=== PATIENT | male | born 1965 | race Caucasian/White ===

== ENCOUNTER 2021-03-01 13:57 | Outpatient (CLI) | payer OTHER, SELFPAY ==
[2021-03-01 15:06] LABS: Basophils Percent Auto 0.8 % (0.2-1.2); Eosinophils Percent Auto 0.8 % (0-4.4); Hematocrit 41.4 % (42.0-52.0); Hemoglobin 14.5 g/dL (14.0-18.0); Immature Granulocyte Absolute 0.01 K/mm3 (0.00-0.031); Immature Granulocyte Percent A 0.2 % (0-0.5); Lymphocytes Absolute Auto 1.76 K/mm3 (0.9-3.2); Lymphocytes Percent Auto 36.7 % (18.3-44.2); Mean Corpuscular Hemoglobin 32.8 pg (26-34); Mean Corpuscular Volume 93.7 fl (80-100); Mean Platelet Volume 9.6 fl (7.4-10.4); Monocytes Absolute Auto 0.3 K/mm3 (0.1-0.6); Monocytes Percent Auto 7.1 % (2.6-8.5); Neutrophils Absolute Auto 2.6 K/mm3 (1.3-6.7); Neutrophils Percent Auto 54.4 % (45.5-73.1); Platelet Count Result 212 k/mm3 (150-375); Red Blood Count 4.42 M/mm3 (4.6-6.20); Red Cell Distribution Width 11.4 % (11.5-14.5); White Blood Count 4.8 K/mm3 (4.5-10.0)
[2021-03-01 15:21] LABS: Hemoglobin A1C 5.2 % (<5.7)
[2021-03-01 15:28] LABS: Albumin Level 4.7 g/dL (3.5-5.1); Anion Gap 9 mmol/L (8-16); Blood Urea Nitrogen 18 mg/dL (9-20); Calcium 9.4 mg/dL (8.4-10.2); Carbon Dioxide 29 mmol/L (22-30); Chloride 103 mmol/L (98-107); Estimated Glomerular Filt Rate > 60; Glucose 128 mg/dL (65-110); Potassium 4.2 mmol/L (3.4-5.0); Sodium 141 mmol/L (137-145)
[2021-03-01 15:54] LABS: Urine Cotinine NEGATIVE
== END 2021-03-01 13:58 | disposition home or self-care (01) ==
LOC: ANHSURGERY 14:03
PROVIDERS: PCP Orthopaedic Surgery; Visit Provider Orthopaedic Surgery
DX: Z01.812 Encounter for preprocedural laboratory examination (principal); M16.11 Unilateral primary osteoarthritis, right hip
CPT/HCPCS: 80048; 80307; 82040; 83036; 85025; 86850; 86900; 86901; 87070

== ENCOUNTER → 2021-03-08 14:06 | Outpatient (REF) | payer OTHER, SELFPAY | LOC: ANHLAB 14:06 | PROVIDERS: PCP Internal Medicine Gastroenterology; Visit Provider Nurse Practitioner | DX: D49.2 Neoplasm of unspecified behavior of bone, soft tissue, and skin (principal) | CPT/HCPCS: 88305 ==

== ENCOUNTER 2021-03-14 00:43 | Day surgery (SDC) | payer OTHER, SELFPAY ==
[2021-03-01 14:09] VITALS: BMI 25.0
[2021-03-01 14:44] VITALS: BP 141/81; PULSE 78; RESP 16; TEMP 37.2; O2SAT 99
--- NOTE | 2021-03-11 12:16 | PM.IMHP ---
H&P: HPI History of Present Illness Date/Time: 03/11/21 12:16 55-year-old male patient of Dr Rosario who presents today for a right total hip arthroplasty anterior approach. He underwent left total arthroplasty in August this year. He has recovered well. He is very comfortable and happy with his results. His right hip continues to be very painful for him. He has severe arthritis in the hip. At this point is ready to proceed with total arthroplasty. Chief Complaint: right hip DJD Review of Systems Review of Systems: All systems reviewed & are unremarkable except as noted in HPI and below PMFSH Surgical History Surgical History History of left hip replacement Hx of carpal tunnel repair Hx of cataract surgery Social History Social History Smoking status: Never smoker Additional smoking assessment comments: DENIES ANY FORM OF TOBACCO USE Alcohol intake: current Drinks per week: 10 Spiritual care concerns: No Meds Home Medications and Allergies Home Medications Medication Instructions Recorded Confirmed Type diclofenac sodium 75 mg PO DAILY 03/01/21 03/01/21 History multivitamin [Men's Multi-Vitamin] 1 tablet PO DAILY 03/01/21 03/01/21 History omega-3 fatty acids [Fish Oil] 1,000 mg PO DAILY 03/01/21 03/01/21 History Allergies Allergy/AdvReac Type Severity Reaction Status Date / Time No Known Allergies Allergy Unverified 03/08/21 13:46 Exam Narrative: 55-year-old male alert pleasant. Walks with mild limp. He is 5 ft 10 170 lb. His right hip flexes to 95 externally rotates to 20 and internally rotates to 5. does have some mild atrophy of the right calf. 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 He has pain with Stinchfield maneuver an anterior lateral hip. He has normal abduction strength lateral position. No tenderness over the greater trochanter. Normal sensation right lower extremity. Skin around the groin and anterior lateral hip were all normal. 2+ posterior artery pulse. No edema in lower extremity. Resp: Auscultation: clear to auscultation bilaterally Cardio: Rate: regular rate Rhythm: regular rhythm Assessment and Plan Additional Plan 55-year-old male with severe arthritis of the right hip with rather severe symptoms. He has been on diclofenac without improvement of his symptoms. He did very well recovering from his left total hip arthroplasty earlier this year. He feels he is ready proceed with the right. Surgical procedure as well as risks complications were reviewed all questions were answered and will proceed. He will stop his diclofenac and any other aspirin ibuprofen products 1 week prior surgery. A plane use Eliquis for DVT prophylaxis as we did this 1st hip. His nasal swab was negative. Chem panel is all within normal limits creatinine is 0.90. Hemoglobin 14.5 and platelets were 212.
--- NOTE | 2021-03-11 15:32 | WPDANESEPPF ---
Anes - Initial Pre Proc Eval Procedure: Operation Date: 03/14/21 07:30 Proposed Procedures p Right Total Hip Arthroplasty Direct Anterior Approach - Heladio Beltre MD Date/Time: 03/11/21 15:32 Surgeon: Heladio Beltre MD Pre Op Diagnosis: OA right hip Patient Data Age: 55 Gender: M Height: 1.78 m Weight: 79.2 kg Last Vital Signs Temp 99.0 F 03/01/21 14:44 Pulse 78 03/01/21 14:44 Resp 16 03/01/21 14:44 BP 141/81 H 03/01/21 14:44 Pulse Ox 99 03/01/21 14:44 Allergies Allergy/AdvReac Type Severity Reaction Status Date / Time No Known Allergies Allergy Verified 03/14/21 06:18 Home Medications Medication Instructions Recorded Confirmed Type diclofenac sodium 75 mg PO DAILY 03/01/21 03/14/21 History multivitamin [Men's Multi-Vitamin] 1 tablet PO DAILY 03/01/21 03/14/21 History omega-3 fatty acids [Fish Oil] 1,000 mg PO DAILY 03/01/21 03/14/21 History Patient hx anesthesia problems: none Family hx anesthesia problems: none Results Review: All pre-operative results and documents have been reviewed as part of the pre-operative evaluation. [facility] Past Medical History Medical History (Updated 03/11/21 @ 15:32 by Serge Cortes MD) Arthritis Surgical History Surgical History History of left hip replacement Hx of carpal tunnel repair Hx of cataract surgery Social History Social History Smoking status: Never smoker Additional smoking assessment comments: DENIES ANY FORM OF TOBACCO USE Alcohol intake: current Drinks per week: 10 Living arrangements: with family Spiritual care concerns: No Anes - Eval Final PreProcedure Day of Procedure 03/11/21 15:32 Patient weight: normal Heart: regular rate and rhythm Lungs: clear to auscultation Airway: Mallampati scale class III Neurological: alert and oriented Last oral intake: >/= 8 hours ASA classification: II Emergent: no Anesthetic plan: proceed Anesthesia type and monitoring: general ETT and standard monitoring Results Review: All pre-operative results and documents have been reviewed as part of the pre-operative evaluation. Informed Consent: The patient's anesthetic plan and its attendant risks and benefits were discussed with the patient/family/POA. Questions were solicited and answers provided to the satisfaction of the patient/family/POA.
[2021-03-14] VITALS (13 sets, daily range): BP systolic 114–155; BP diastolic 57–88; PULSE 76–105; RESP 12–20; TEMP 36.7–37.4; O2SAT 95–100; BMI 24.6
--- NOTE | ~2021-03-14 | XR_ITS ---
EXAMINATION: XR hip RT min 2V EXAM DATE: 03/14/2021 13:16 INDICATION: Postoperative right hip replacement. Product. TECHNIQUE: Frontal projection of the hips, crosstable lateral projection right hip. Images obtained postoperatively. There is no prior study for comparison. FINDINGS: Status post right hip arthroplasty with hardware in expected position. The left hip arthrop lasty hardware is in position on the frontal image. There is some subcutaneous gas. IMPRESSION: Hip replacements in expected position. Reviewed, dictated and finalized at location A.
--- NOTE | ~2021-03-14 | XR_ITS ---
EXAMINATION: XR surgery orthopedic EXAM DATE: 03/14/2021 12:02 INDICATION: Anterior approach right hip replacement. TECHNIQUE: Portable frontal projections right hip obtained immediately following arthroplasty perfor med by orthopedic surgeon Heladio Beltre MD. FINDINGS: Patient is status post right hip arthroplasty. The orthopedic hardware is in expected pos ition on frontal projections. There is small amount of subcutaneous gas, some soft tissue swelling. Correlate with procedure note. IMPRESSION: Status post right hip arthroplasty. Reviewed, dictated and finalized at location A.
[2021-03-14] MEDS: ACETAMINOPHEN 500 MG TABLET 1000 MG PO ×3 (06:33→19:51)
[2021-03-14] MEDS: LACTATED RINGERS 1,000 ML 30 ML IV CONT ×2 (06:44→13:07)
[2021-03-14] MEDS: TRANEXAMIC ACID 1,000MG/ISO100 1,000 MG/100 ML BAG 200 MG IVPB (06:52)
--- NOTE | 2021-03-14 07:04 | WPDHPUPDATE1 ---
History and Physical Update Update Date/Time: 03/14/21 07:04 History and Physical has been reviewed, including an updated exam of the patient. There are NO changes in the patient's condition. Risks, benefits, and alternatives have been discussed and questions answered. Patient agrees to proceed with procedure.
[2021-03-14] MEDS: ceFAZolin 2 GM/D5W 50 ML 2 GM/50 ML BAG IVPB (07:33)
[2021-03-14] MEDS: ceFAZolin SODIUM 1 GM VIAL 3 GM IRRIGATION (08:39)
[2021-03-14] MEDS: ceFAZolin SODIUM 1 GM VIAL IV PUSH (11:54)
[2021-03-14] MEDS: TRANEXAMIC ACID 1,000 MG/10 ML AMPUL 1000 MG IV PUSH (12:00)
[2021-03-14] MEDS: ceFAZolin SODIUM 1 GM VIAL IRRIGATION (12:06)
--- NOTE | 2021-03-14 12:31 | W.PM.PROC2 ---
Procedure Note - Detailed Date of Procedure 03/14/21 Pre-op Diagnosis OA right hip Post-op Diagnosis same Procedure Performed Direct anterior approach right total hip arthroplasty Surgeon Heladio Beltre MD Shirrer Elie Anesthesia general Description of Procedure Patient was brought to the operating room and general anesthesia was administered. The right foot was covered with soft roll and Coban placed in the special boot left foot placed in a boot also. Lainez catheter was placed. He was transferred to the OSI Luke table and the right hip prepped draped usual fashion. He received 2 g Ancef weight based vancomycin and 1 g tranexamic acid preoperatively. A 10 cm longitudinal incision was made starting 3 cm lateral to the ASIS. Dissection was carried down to the fascia over the tensor fascia brandy muscle which was incised longitudinally and elevated off the anterior 50% of the TFL muscle. Interval between TFL and rectus femoris was developed and the crossing branches of ascending lateral femoral circumflex vessels were ligated with suture divided. Retractor placed over the anterior capsule of the femoral neck the hip abducted internally rotated and the gluteus minimus carefully dissected off the lateral capsule. Standard capsulotomy was performed and femoral neck osteotomy made according to preoperative templating. The femoral head was harder than usual to extract because he had a massive anterior osteophyte. We did remove a small amount of it but did not have adequate access in the anterior mid acetabulum and a napkin ring of bone was removed which facilitated extraction the acetabulum was extremely sclerotic and eburnated along its superior and posterior aspects. There was a massive osteophyte anteriorly and it was difficult to determine where it the acetabulum became osteophyte. A conservative removal of osteophyte from the anterior wall was carried out. The fovea was completely overgrown and we made several reamings with the the 44 mm Reamer straight medial to unroof the fovea at which time we were able to remove the fat pad and overhanging osteophyte and reaming commenced to the medial wall. The acetabulum was reamed to the 51 which gave peripheral contact with the anterior and posterior boo at the mid equator of the acetabulum. Fifty-one trial had a snug fit. We gently reamed with a 52 to touch the sclerotic periphery and further medialized with a 51 for press fit purposes. The 52 pinnacle cup was chosen and impacted at 40? of abduction and anteverted relative to the fluoroscopic anatomy pitcher and the floor. The anterior osteophyte was again massive and so we could not use it as an anatomic reference. This seated fully and had excellent press fit a single screw was placed in the ilium also with an excellent purchase. The 36 inner diameter liner was impacted in place and seated fully. We then proceeded to remove osteophytes around the acetabulum including the majority of the huge anterior osteophyte. There was a huge inferior osteophyte as well. Next we externally rotated extended the femur. The interval between the piriformis tendon and conjoined tendon was incised which allowed the piriformis to flipped posteriorly and gave adequate anterior elevation with partial recession of the conjoined tendon. The femur was broached up to a size 6 which seemed to give appropriate torsional stability but did go in fairly easily. We trialed and with initial trialing we were a bit tight with the 5 mm head we trialed with a 1.5 and I could see that our neck cut was still about 5 mm proud. We countersunk the 6 broach and calcar planed. With the handheld broach impactor there seemed adequate torsional stability. I applied the concise gun and with the extra leverage on torsional stability testing there was a mm of rotation and play as I suspected. The 6 was removed and we inserted 7 broach which was very difficult to fully impact but eventually did fully se
--- NOTE | 2021-03-14 13:55 | ADMGEN ---
This patient, Alfred Moore, was admitted to Medical Room 248-01. Patient/family oriented to hospital policies and general routines including ID bracelet, bed and alarms, visiting hours, pain management, procedures, bathroom and other care routines, personal items, smoking policy, room service/diet, and visiting hours. Information on how to activate the Rapid Response Team has been discussed. Patient/Family are encouraged to report perceived risks to care and to ask questions if they do not understand what they are told or what they should do.
[2021-03-14] MEDS: SODIUM CHLORIDE 0.9% IV 1,000 ML 125 ML IV CONT (14:35)
[2021-03-14] MEDS: oxyCODONE HCL (*CRX) 5 MG TAB IR PO ×3 (14:35→22:00)
[2021-03-14] MEDS: ONDANSETRON INJ 4 MG/2 ML VIAL IV PUSH (15:12)
--- NOTE | 2021-03-14 15:53 | PCPTNOTE ---
On 03/14/21, the student, Eliceo Larose, provided care and completed [facility] documentation on this patient. I have reviewed the student's documentation and agree with the findings.
[2021-03-14] MEDS: SENNA/DOCUSATE SODIUM TABLET 2 TAB PO (16:05)
[2021-03-14] MEDS: CELECOXIB 200 MG CAPSULE PO (19:52)
[2021-03-14] MEDS: BENZOCAINE/MENTHOL (*BKC) 18 EA LOZENGE 1 LOZENGE PO (20:24)
[2021-03-15] MEDS: oxyCODONE HCL (*CRX) 5 MG TAB IR PO ×3 (01:50→10:10)
[2021-03-15] MEDS: ACETAMINOPHEN 500 MG TABLET 1000 MG PO ×2 (01:50→08:01)
[2021-03-15 05:02] VITALS: BP 109/58; PULSE 99; RESP 16; TEMP 37.1; O2SAT 94
[2021-03-15 05:40] LABS: Basophils Percent Auto 0.2 % (0.2-1.2); Hematocrit 31.6 % (42.0-52.0); Hemoglobin 10.7 g/dL (14.0-18.0); Immature Granulocyte Absolute 0.04 K/mm3 (0.00-0.031); Immature Granulocyte Percent A 0.4 % (0-0.5); Lymphocytes Absolute Auto 1.54 K/mm3 (0.9-3.2); Lymphocytes Percent Auto 14.7 % (18.3-44.2); Mean Corpuscular HGB Conc 33.9 g/dl (32-36); Mean Corpuscular Hemoglobin 33.3 pg (26-34); Mean Corpuscular Volume 98.4 fl (80-100); Monocytes Absolute Auto 1.1 K/mm3 (0.1-0.6); Monocytes Percent Auto 10.4 % (2.6-8.5); Neutrophils Absolute Auto 7.8 K/mm3 (1.3-6.7); Neutrophils Percent Auto 74.3 % (45.5-73.1); Platelet Count Result 162 k/mm3 (150-375); Red Blood Count 3.21 M/mm3 (4.6-6.20); Red Cell Distribution Width 11.5 % (11.5-14.5); White Blood Count 10.5 K/mm3 (4.5-10.0)
[2021-03-15 05:51] LABS: Anion Gap 4 mmol/L (8-16); Blood Urea Nitrogen 17 mg/dL (9-20); Calcium 8.6 mg/dL (8.4-10.2); Carbon Dioxide 27 mmol/L (22-30); Chloride 105 mmol/L (98-107); Estimated CRCL calculation 84 ml/min; Estimated Glomerular Filt Rate > 60; Glucose 113 mg/dL (65-110); Potassium 3.9 mmol/L (3.4-5.0); Sodium 136 mmol/L (137-145)
--- NOTE | 2021-03-15 06:17 | PM.DS ---
DS: Admitting Diagnosis Discharge Date 03/15/2021 Admitting Diagnosis severe osteoarthritis right hip, DS: Discharge Diagnosis Discharge Diagnosis (1) S/P hip replacement: Code(s): Z96.649 - Presence of unspecified artificial hip joint Status: Acute DS: Summary Hospital Course Hospital Course: See other section. . Time Spent with Patient Time attestation: Total time spent providing and/or coordinating discharge services: patient underwent right total hip arthroplasty on 03/14/2021. His had uneventful postoperative course except for feeling nauseated yesterday which limited his ability to ambulate. He did have hip replacement 1 year ago and notes that was able to climb steps a day after surgery but his nausea has reduced his activity on the day of surgery this time. He does feel better this morning in his nausea has resolved and he anticipates being able to be mobilized well and plans to go home today. He has acute blood loss anemia with hemoglobin of 10.7. His wound looks fine there has been minimal blood out the drain. His discharge medications will include Eliquis for 5 weeks for DVT prophylaxis, Celebrex for a total of 10 days 200 mg once daily for prophylaxis against heterotopic ossification, oxycodone and Tylenol for pain. Asha Colace and MiraLax for constipation prophylaxis. He is weight-bearing as tolerated on the right leg. He will follow up in the office in approximately 12 days. DS: Data Data Completed and Pending Labs on day of discharge: Labs from last 24 hours 03/15/21 03/15/21 04:50 04:50 WBC 10.5 H RBC 3.21 L Hgb 10.7 L D Hct 31.6 L MCV 98.4 MCH 33.3 MCHC 33.9 RDW 11.5 Plt Count 162 MPV 10.0 Immature Gran % (Auto) 0.4 Neut % (Auto) 74.3 H Lymph % (Auto) 14.7 L Dor[place] % (Auto) 10.4 H Eos % (Auto) 0.0 Baso % (Auto) 0.2 Lymph # (Auto) 1.54 [place]ado # (Auto) 1.1 H Eos # (Auto) 0.0 Baso # (Auto) 0.0 Abs Immat Gran (auto) 0.04 H Absolute Neuts (auto) 7.8 H Absolute Nucleated RBC 0.0 Nucleated RBC % 0.0 Sodium 136 L Potassium 3.9 Chloride 105 Carbon Dioxide 27 Anion Gap 4 L BUN 17 Creatinine 0.90 Estim Creat Clear Calc 84 Estimated GFR > 60 Glucose 113 H Calcium 8.6 Discharge Plan Discharge Patient Disposition: Home, Self-Care Discharge Instructions: Avoid sitting in the chair except for eating using the restroom and receiving casts as much as possible 1st 7 days to avoid excessive leg swelling. Have the leg elevated above the heart when possible. He may be full weight-bearing on the right leg. Use the walker until your balance is sufficient to allow use of cane in left hand. Remove the dressing for showers and reapply dressing. Stand Alone Forms: General Discharge Instructions Follow-up/Referrals: Heladio Beltre MD [Physician] - ( Two weeks) Discharge Orders: Discharge Order (Routine); Ordered 03/15/21 Ordered By: Heladio Beltre Discharge Medications: New celecoxib [Celebrex] 200 mg Capsule 200 mg PO DAILY@0800 Qty: 9 RF: 0 polyethylene glycol 3350 [Miralax] 17 gram Powder In Packet 17 g PO QAM Qty: 30 RF: 0 sennosides-docusate sodium [Senokot-S] 8.6-50 mg Tablet 2 tab PO BID Qty: 60 RF: 0 acetaminophen 500 mg Tablet 1,000 mg PO Q6H Qty: 100 RF: 0 oxycodone 5 mg Tablet 5 mg PO Q4H PRN (Reason: Pain Rated 4-10) Qty: 40 RF: 0 Chloraseptic Sore Throat 6-10 mg Lozenge 1 leslie PO PRN PRN (Reason: Sore Throat) Qty: 10 RF: 0 Eliquis 2.5 mg Tablet 2.5 mg PO Q12HR Qty: 70 RF: 0 Continued multivitamin Tablet 1 tablet PO DAILY RF: 0 Discontinued diclofenac sodium 75 mg tablet,delayed release (DR/EC) 75 mg PO DAILY RF: 0 Fish Oil Capsule 1,000 mg PO DAILY RF: 0
[2021-03-15] MEDS: SENNA/DOCUSATE SODIUM TABLET 2 TAB PO (08:01)
[2021-03-15] MEDS: APIXABAN 2.5 MG TABLET PO (08:01)
[2021-03-15] MEDS: CELECOXIB 200 MG CAPSULE PO (08:01)
[2021-03-15] MEDS: MULTIVITAMINS THERAPEUTIC TAB (*BKC) 1 TABLET PO (08:01)
[2021-03-15] MEDS: polyethylene glycoL 3350 17 GM POWD.PACK PO (08:01)
[2021-03-15 09:41] VITALS: BP 124/69; PULSE 83; RESP 18; TEMP 37.1; O2SAT 98
--- NOTE | 2021-03-15 10:43 | PCOTNOTE ---
Attempted to see patient prior to d/c for OT, patient and present and declined any ADL or mobility needs. Reviewed [facility] for purchasing assistance. Patient and had no additional concerns at this time as patient had other hip surgery done previously very recently.
== END 2021-03-15 11:20 | disposition home or self-care (01) ==
LOC: ANHSURGERY 06:04 → ANH2MED 13:50
PROVIDERS: PCP Internal Medicine Gastroenterology; Visit Provider Orthopaedic Surgery
PROC: (CPT 27130; principal; 2021-03-14 07:30)
DX: M16.11 Unilateral primary osteoarthritis, right hip (principal); M19.90 Unspecified osteoarthritis, unspecified site; M25.751 Osteophyte, right hip; Z79.899 Other long term (current) drug therapy
CPT/HCPCS: 27130; 36415; 73502; 80048; 80307; 82040; 83036; 85025; 86850; 86900; 86901; 87070; 97110; 97116; 97161; 97165; 97530; A9270; C1776; J0171; J0690; J1100; J1170; J1885; J2250; J2270; J2405; J2704; J2795; J3010; J3370; J7030; J7040; J7120

== ENCOUNTER 2022-03-15 17:21 | Outpatient (CLI) | payer OTHER, SELFPAY ==
[2022-03-15 18:32] LABS: CRP < 0.5 mg/dL (<1.0)
[2022-03-15 18:44] LABS: Erythrocyte Sedimentation Rate 10 mm/hr (0-20)
== END 2022-03-15 17:22 | disposition home or self-care (01) ==
LOC: ANHLAB 17:23
PROVIDERS: PCP Internal Medicine Gastroenterology; Visit Provider Orthopaedic Surgery
DX: M25.551 Pain in right hip (principal); Z96.641 Presence of right artificial hip joint
CPT/HCPCS: 36415; 85652; 86140

== ENCOUNTER → 2022-04-17 08:30 | Outpatient (CLI) | payer OTHER, SELFPAY ==
--- NOTE | ~2022-04-17 | MR_ITS ---
EXAMINATION: MR lumbar spine wo con DATE: 04/17/2022 08:59 INDICATION: Low back pain TECHNIQUE: Magnetic resonance imaging (MRI) of the lumbar spine was performed without intravenous con trast. Sequences included sagittal T2-weighted FSE, sagittal T2-weighted FS FSE, sagittal T1-weighted FSE, and axial T2-weighted FSE. COMPARISON: None FINDINGS: 2 mm anterolisthesis L5 on S1 Alignment is otherwise normal. Vertebral body heights are normal. Norm al marrow signal. Mild disc height loss at T10-T11, T11-T12 and L4-L5. The conus medullaris terminate s at L2-L3. There is normal signal in the caudal spinal cord. Paravertebral soft tissues are unremark able. The following disc levels are specifically discussed: T12-L1: The disc does not extend beyond the endplate margin. There is mild bilateral facet joint oste oarthritis. There is no neural foraminal stenosis. There is no central canal stenosis. L1-L2: The disc does not extend beyond the endplate margin. There is mild right and moderate left fac et joint osteoarthritis. There is no neural foraminal stenosis. There is no central canal stenosis. L2-L3: Disc is minimally bulging. There is hypertrophy of the ligamentum flavum. There is moderate b ilateral facet joint osteoarthritis. There is mild bilateral neural foraminal stenosis. There is mild central canal stenosis. L3-L4: Disc is minimally bulging. There is hypertrophy of the ligamentum flavum. There is moderate bi lateral facet joint osteoarthritis. There is mild bilateral neural foraminal stenosis. There is mild central canal stenosis. L4-L5: Disc is mildly bulging with superimposed annular fissure and small central disc protrusion. Th ere is hypertrophy of the ligamentum flavum. There is severe bilateral facet joint osteoarthritis. Th ere is moderate bilateral neural foraminal stenosis. There is moderate central canal stenosis. L5-S1: Disc is mildly bulging with annular fissure and small central disc protrusion. There is severe bilateral facet joint osteoarthritis. There is mild left and mild to moderate right neural foraminal stenosis. There is no central canal stenosis. IMPRESSION: 1. Mild lumbar spondylosis most notable for moderate canal and moderate bilateral neural foraminal st enosis at L4-L5. Reviewed, dictated and finalized at location A. [employer] IMPRESSION: 1. Mild lumbar spondylosis most notable for moderate canal and moderate bilater al neural foraminal stenosis at L4-L5.
== END ==
PROVIDERS: PCP Internal Medicine Gastroenterology; Visit Provider Internal Medicine Gastroenterology
DX: M54.50 Low back pain, unspecified (principal); M43.06 Spondylolysis, lumbar region; M48.061 Spinal stenosis, lumbar region without neurogenic claudication
CPT/HCPCS: 72148

== ENCOUNTER 2023-12-17 14:45 | Outpatient (CLI) | payer OTHER, SELFPAY ==
--- NOTE | ~2023-12-17 | MR_ITS ---
MRI of the left shoulder Technique: Axial proton-density fat-sat images, coronal proton density fat-sat and T2 fat-sat images, and sagittal T1-weighted and T2 fat-sat images were acquired. Clinical History: Pain Findings: There is advanced AC joint degenerative change, prominent bony productive change of the dis michele clavicle. Coracoclavicular, coracoacromial, and coracohumeral ligaments appear intact. There is a 1.5 x 1.9 cm full-thickness tear at the anterior, distal supraspinatus tendon. There is se addy tendinosis of the supraspinatus and infraspinatus tendons. Subscapularis tendon is probably inta ct with severe tendinosis. Tendon of the long head of the biceps is intact, with intra-articular tend inosis. There is probable near circumferential degenerative labral tearing. There is minimal degenerative change of the glenohumeral joint. No significant joint effusion present . Inferior glenohumeral ligament is intact. There is minimal fluid in the subacromial/subdeltoid burs a. No muscle atrophy or edema. Impression: 1.5 x 1.9 cm full-thickness tear of the anterior, distal supraspinatus tendon. Background severe rotator cuff tendinosis. Circumferential degenerative labral tearing. Severe AC joint degenerative change. Minimal glenohumeral joint degenerative change. Reviewed, dictated and finalized at [facility]. Impression: 1.5 x 1.9 cm full-thickness tear of the anterior, distal supraspinatus tendon. Background severe rotator cuff tendinosis. Circumferential degenerative labral tearing. Severe AC joint degenerative change. Minimal glenohumeral joint degenerative ch alejandra.
== END 2023-12-17 14:46 ==
PROVIDERS: PCP Orthopaedic Surgery; Visit Provider Orthopaedic Surgery
DX: M25.512 Pain in left shoulder (principal); S46.812A Strain of other muscles, fascia and tendons at shoulder and upper arm level, left arm, initial encounter; M77.8 Other enthesopathies, not elsewhere classified; S43.432A Superior glenoid labrum lesion of left shoulder, initial encounter
CPT/HCPCS: 73221

== ENCOUNTER 2024-01-23 08:00 | Outpatient (RCR) | payer OTHER, SELFPAY ==
--- NOTE | 2024-01-02 11:16 | PTOPEVAL1 ---
Assessment and note entered by Susannah Bronson, PT Evaluation Information Assessment Status Evaluation Diagnosis left shoulder pain , rotator cuff tear ICD-10 Condition Codes (PT) M25.512,Weakness R53.1 Onset September 2023 Subjective Information Pt stats pain started 2.5 months ago, was crawling in an attack, turned and had a shooting pain in the left shoulder. Went to PCP a few days to a week later, and he wasn't too worried. Took a couple months to get into Ortho. Has an MRI that stated significant tear to supraspinatus tendon, multiple areas of tendonosis in the shoulder with possible labral tear. Works in [employer] Reported Pain Level Pain Score 0: Self Report Assessment PT Clinical Summary Pt presents for left shoulder rotator cuff tear pt thinks happened 2.5 months ago while was in an attic doing a job in quadruped position. Reports initially had significant pain but now is much improved. MRI shows full thickness partial tear of supraspinatus and multiple shoulder muscles with tendinosis. Pt states pain with overhead activities, demo's mild ROM deficits in flexion and abduction compared to RUE but internal and external rotation WNL. Demo's great strength in neutral positions however demo's decreased strength in overhead position. Pain currently ranges from 0-4/10 but patient reports has been modifying activities and performing overhead less. Pt initiated MD provided exercise program focusing on scapular control and strength. Pt will benefit from physical therapy to address deficits and return to PLOF without pain. Plan of Care Interventions Electrical Stimulation,Hot Pack/Cold Pack,Manual Therapy,Neuro Re-education,Patient/Caregiver Educati,Therapeutic Activities,Therapeutic Exercise,Self-Care/Home Management,Ultrasound PT Services Indicated Yes Treatment Frequency and 2x weekly x 4 weeks Duration These treatments will address the objective and functional deficits as defined above. The patient will be advanced safely and appropriately in order for the patient to progress towards his/her prior level of function. Additional exercises will be introduced and as well as a comprehensive home exercise program upon discharge, if needed, ?to ensure carryover of functional gains achieved in the clinic. This treatment plan has been reviewed and agreement upon by the patient.
--- NOTE | 2024-01-02 11:17 | OPREHPOC ---
Outpatient Therapy Plan of Care This is a Multidisciplinary Plan of Care that may contain components documented by all disciplines (PT, OT, and ST.) PT Goal 1 Goal / Goal Update Pt will be independent in HEP Pt will verbalize understanding of diagnosis and prognosis Target Visit 4 PT Problem 2 PT Problem #2 Pain PT Goal 1 Goal / Goal Update Pt will report greatest pain level at 2/10 or less to improve ADLs and activities Target Visit 4 PT Goal 2 Goal / Goal Update Pt will report resolution of pain to return to PLOF Target Visit 8 PT Problem 3 PT Problem #3 Impaired Range of Motion PT Goal 1 Goal / Goal Update Pt will demo equal active ROM on Donnie UEs in flexion and abduction without pain Target Visit 8 PT Problem 4 PT Problem #4 Impaired Strength PT Goal 1 Goal / Goal Update Pt will demo overhead strength LUE equal to RUE Target Visit 10
--- NOTE | 2024-01-07 13:14 | PCPTNOTE ---
Pt. cancelled and rescheduled todays appt..
--- NOTE | 2024-01-23 08:54 | PTOPDC ---
Assessment and note entered by Sean Tinajero, PT, DPT Evaluation Information Assessment Status Discharge Diagnosis left shoulder pain ICD-10 Condition Codes (PT) M25.512,Weakness R53.1 Onset September 2023 Subjective Information Pt states since starting therapy his shoulder has progressed. He states reaching overhead is still a bit challenging. Reports progressing pain. Reported Pain Level Pain Score 2: Self Report Assessment PT Clinical Summary Pt has completed 8 visits of skilled therapy to treat his L shoulder pain. Today he demonstrates improved ROM and strength and is now functioning ~ 80-90% of his R shoulder. He reports decreased pain and improved function. He is progressing well towards his therapy goals and demonstrates independence with his HEP. He will be d/c'ed at this time and plans to continue his HEP upon discharge.
== END 2024-01-23 11:01 | disposition home or self-care (01) ==
LOC: ANHGOSHPT 08:00
PROVIDERS: PCP Internal Medicine Gastroenterology; Visit Provider Orthopaedic Surgery
DX: S46.012A Strain of muscle(s) and tendon(s) of the rotator cuff of left shoulder, initial encounter (principal)
CPT/HCPCS: 97110; 97112; 97140; 97161; 97530